=== PATIENT | female | born 2000 | race Caucasian/White ===

== ENCOUNTER 2018-11-20 10:26 | Emergency (ER) | payer OTHER ==
[2018-11-20 10:48] LABS: Hematocrit 40.6 % (30.3-42.9); Hemoglobin 13.5 gm/dl (10.1-14.3); Mean Corpuscular HGB Conc 33 % (30-34); Mean Corpuscular Volume 86 fl (79-97); Platelet Count 207 K/mm3 (140-440); Red Blood Count 4.71 M/mm3 (3.65-5.03); Red Cell Distribution Width 14.7 % (13.2-15.2)
[2018-11-20 11:11] LABS: Alanine Aminotransferase 6 units/L (7-56); Albumin 4.9 g/dL (3.9-5); BUN/Creatinine Ratio 24; Blood Urea Nitrogen 12 mg/dL (7-17); Calcium 9.3 mg/dL (8.4-10.2); Hemolysis Index 4
[2018-11-20] MEDS ORDERED: MORPHINE IV ONE (11:36)
[2018-11-20] MEDS ORDERED: NACL 0.9% 1000 ML 1,000 ML IV ONE (11:36)
[2018-11-20] MEDS ORDERED: ZOFRAN IV ONE (11:36)
--- NOTE | 2018-11-20 11:48 | Emergency Department Report ---
ED Abdominal Pain HPI - General Chief Complaint: Nausea/Vomiting/Diarrhea Stated Complaint: VOMITING Time Seen by Provider: 11/20/18 11:31 Source: patient Mode of arrival: Ambulatory Limitations: No Limitations - History of Present Illness Initial Comments: This is a 18-year-old female nontoxic, well nourished in appearance, no acute signs of distress presents to the ED with c/o of nausea and vomiting and abdominal pain 1 day. Patient describes vomiting as food content and yellow gastric acid. Patient describes abdominal pain as cramping and aching with level of 3/10 diffuse. Patient denies chest pain, short of breath, fever, chills, headache, stiff neck, numbness or tingling. Patient denies any diarrhea or constipation. Patient denies any recent travels. Patient denies any allergies or PMH. MD Complaint: abdominal pain -: days(s) (1) Location: diffuse Radiation: none Migration to: no migration Severity: mild Severity scale (0 -10): 8 Quality: cramping, aching Consistency: constant Improves With: nothing Worsens With: nothing Associated Symptoms: nausea, vomiting. denies: diarrhea, fever, chills, constipation, dysuria, hematemesis, hematochezia, melena, hematuria, anorexia, syncope - Related Data Previous Rx's Medication Instructions Recorded Last Taken Type Ibuprofen [Motrin] 600 mg PO Q8H PRN #20 tablet 11/20/18 Unknown Rx Ondansetron [Zofran Odt] 4 mg PO Q8HR PRN #20 tab.rapdis 11/20/18 Unknown Rx Allergies Allergy/AdvReac Type Severity Reaction Status Date / Time No Known Allergies Allergy Unverified 11/20/18 10:31 ED Review of Systems ROS: Stated complaint: VOMITING Other details as noted in HPI Constitutional: denies: chills, fever Eyes: denies: eye pain, eye discharge, vision change ENT: denies: ear pain, throat pain Respiratory: denies: cough, shortness of breath, wheezing Cardiovascular: denies: chest pain, palpitations Endocrine: no symptoms reported Gastrointestinal: abdominal pain, nausea, vomiting. denies: diarrhea Genitourinary: denies: urgency, dysuria, discharge Musculoskeletal: denies: back pain, joint swelling, arthralgia Skin: denies: rash, lesions Neurological: denies: headache, weakness, paresthesias Psychiatric: denies: anxiety, depression Hematological/Lymphatic: denies: easy bleeding, easy bruising ED Past Medical Hx - Social History Smoking Status: Never Smoker Substance Use Type: None - Medications Home Medications: Home Medications Medication Instructions Recorded Confirmed Last Taken Type Ibuprofen [Motrin] 600 mg PO Q8H PRN #20 tablet 11/20/18 Unknown Rx Ondansetron [Zofran Odt] 4 mg PO Q8HR PRN #20 tab.rapdis 11/20/18 Unknown Rx ED Physical Exam - General Limitations: No Limitations General appearance: alert, in no apparent distress - Head Head exam: Present: atraumatic, normocephalic - Eye Eye exam: Present: normal appearance - Neck Neck exam: Present: normal inspection, full ROM. Absent: tenderness, meningismus, lymphadenopathy - Respiratory Respiratory exam: Present: normal lung sounds bilaterally. Absent: respiratory distress, wheezes, rales, rhonchi, stridor, chest wall tenderness, accessory muscle use, decreased breath sounds, prolonged expiratory - Cardiovascular Cardiovascular Exam: Present: regular rate, normal rhythm, tachycardia, normal heart sounds. Absent: irregular rhythm, systolic murmur, diastolic murmur, rubs, gallop - GI/Abdominal GI/Abdominal exam: Present: soft, tenderness (diffuse), normal bowel sounds. Absent: distended, guarding, rebound, rigid, diminished bowel sounds - Expanded GI/Abdominal Exam Expanded GI/Abdominal exam: Absent: psoas sign, Fitzpatrick's sign, Rovsing's sign, tenderness at Mcburney's Point, ascites - Extremities Exam Extremities exam: Present: normal inspection, full ROM, normal capillary refill - Back Exam Back exam: Present: normal inspection, full ROM. Absent: tenderness, CVA tenderness (R), CVA tenderness (L), muscle spasm, paraspinal tenderness, vertebral tenderness, rash noted - Neurological Exam Neurological exam: Present: alert, oriented X3, normal gait - Psychiatric Psychiatric exam: Present: normal affect, normal mood - Skin Skin exam: Present: warm, dry, intact, normal color. Absent: rash ED Course Vital Signs 11/20/18 11/20/18 11/20/18 10:28 12:03 12:33 Temperature 98.6 F Pulse Rate 108 H Respiratory 18 18 15 Rate Blood Pressure 107/62 O2 Sat by Pulse 98 Oximetry - Reevaluation(s) Reevaluation #1: 11/20/18 11:47 Patient is speaking in full sentences with no signs of distress noted. ED Medical Decision Making - Lab Data Result diagrams: 11/20/18 10:37 11/20/18 10:37 - Medical Decision Making This is a 18-year-old female that presents with abdominal pain. Patient is stable and was examined by me. There is slight abdominal tenderness. Negative signs of symptoms of appendicitis. Labs obtained. UA obtained. CT with contrast of abdomen obtained and dictated by the radiologist. Patient is notified of the report with no questions noted by the patient. Vital signs are stable prior to discharge. PAtient received medical treatment in the ED which patient stated symptoms has resolved and subsided. A by mouth challenge has been obtained and patient tolerated well with no nausea vomiting. Patient was notified of strict precautions of appendicitis symptoms and to return to the ED if symptoms occurs as soon as possible. Patient was also instructed to Follow-up with a primary care doctor in 3-5 days or if symptoms worsen and continue return to emergency room as soon as possible. At time of discharge, the patient does not seem toxic or ill in appearance. No acute signs of distress noted. Patient agrees to discharge treatment plan of care. No further questions noted by the patient. Critical care attestation.: If time is entered above; I have spent that time in minutes in the direct care of this critically ill patient, excluding procedure time. ED Disposition Clinical Impression: Abdominal pain Qualifiers: Abdominal location: generalized Qualified Code(s): R10.84 - Generalized abdominal pain Nausea & vomiting Qualifiers: Vomiting type: unspecified Vomiting Intractability: non-intractable Qualified Code(s): R11.2 - Nausea with vomiting, unspecified Disposition: DC-01 TO HOME OR SELFCARE Is pt being admited?: No Does the pt Need Aspirin: No Condition: Stable Instructions: Acute Abdominal Pain (ED), Acute Nausea and Vomiting (ED) Additional Instructions: Follow-up with a primary care doctor in 3-5 days or if symptoms worsen and continue return to emergency room as soon as possible. Prescriptions: Ibuprofen [Motrin] 600 mg PO Q8H PRN #20 tablet PRN Reason: Pain Ondansetron [Zofran Odt] 4 mg PO Q8HR PRN #20 tab.rapdis PRN Reason: Nausea Referrals: PRIMARY CAREMD [Referring] - 3-5 Days SONAL SOLOMON MD [Staff Physician] - 3-5 Days [facility] [place] [Outside] - 3-5 Days [facility] [Outside] - 3-5 Days Forms: Work/School Release Form(ED)
--- NOTE | 2018-11-20 15:36 | Cat Scan Report ---
FINAL REPORT EXAM: CT ABD AND PELVIS W CONTRAST HISTORY: ABD PAIN TECHNIQUE: CT of the abdomen and pelvis was performed after the administration of intravenous contra st. Subsequently, CT of the abdomen and pelvis was performed in the delayed phase. 100 cc of Omnipaqu e 300 intravenous contrast were given. Reconstructions were included in the coronal and sagittal planes. PRIORS: None. FINDINGS: Lower thorax: The lung bases are clear. The visualized portions of the heart are normal. Liver: The liver is normal in attenuation. No intrahepatic biliary duct dilation. No focal hepatic le sions. Gallbladder/ biliary system: No cholelithiasis. The common bile duct appears nondilated. Spleen: No splenic lesions are seen. Pancreas: No pancreatic lesions are seen. No pancreatic duct dilation. Kidneys: There is a nonspecific low-attenuation lesion in the interpolar region of the left kidney wh ich is higher in attenuation than a simple cyst measuring 2.2 x 1.7 centimeters. No hydronephrosis on either side. Adrenal glands: No adrenal masses. Vasculature: The abdominal and pelvic vasculature is patent without variant anatomy. Lymph nodes: No enlarged lymph nodes are seen in the abdomen or pelvis. Bowel, mesentery, peritoneum: No bowel obstruction. No free fluid or free air. The appendix is normal . No colonic diverticulosis. No bowel wall thickening. Urinary bladder: No filling defects are seen. Pelvis: Normal anatomy is noted. No masses. Abdominal wall: No abdominal wall hernia or other subcutaneous findings. Bones: No acute or chronic osseous finding. IMPRESSION: 1. No acute intra-abdominal or intrapelvic process. 2. Nonspecific left renal lesion is slightly higher in attenuation than a simple cyst. Recommend furt her evaluation with renal ultrasound.
[2018-11-20 15:41] LABS: Bacteria,Urine 1+ /HPF (Negative); Bilirubin,Urine NEG (Negative); Blood,Urine NEG (Negative); Color,Urine Straw (Yellow); Protein,Urine <15 mg/dL mg/dL (Negative); Urobilinogen,Urine < 2.0 mg/dL (<2.0)
[2018-11-20 16:29] VITALS: BP 104/64
== END 2018-11-20 16:28 | disposition home or self-care (01) ==
LOC: ED 10:26
DX: R10.84 Generalized abdominal pain (principal); R11.2 Nausea with vomiting, unspecified
CPT/HCPCS: 36415; 74177; 80053; 81001; 83690; 84703; 85027; 96361; 96374; 96375; 99284; J2270; J2405; J7030; Q9967; 96365

== ENCOUNTER 2021-01-27 11:20 | Emergency (ER) | payer SELFPAY ==
--- NOTE | 2021-01-27 13:18 | Event Note ---
ED Screening Note ED Screening Note: Patient presents for heavy vaginal bleeding for the last couple days. She states that she has only had to change her pad twice a day She states that she has lower abdominal cramping She states that she did not have a cycle last month She states lately her cycles have been irregular She states her last cycle was in November She is not seeing a [employer] She is not on any control No past medical history no allergies to medications This initial assessment/diagnostic orders/clinical plan/treatment(s) is/are subject to change based on patients health status, clinical progression and re- assessment by fellow clinical providers in the ED. Further treatment and workup at subsequent clinical providers discretion. Patient/guardian urged not to elope from the ED as their condition may be serious if not clinically assessed and managed. Initial orders include: labs, ua
[2021-01-27 13:50] LABS: Bacteria,Urine 3+ /HPF (Negative); Bilirubin,Urine NEG (Negative); Blood,Urine LG (Negative); Color,Urine Yellow (Yellow); Mucus,Urine 2+ /HPF; Urobilinogen,Urine < 2.0 mg/dL (<2.0)
[2021-01-27 13:51] LABS: RBC,Urine > 182.0 /HPF (0.0-6.0)
[2021-01-27 14:56] LABS: Basophils % (Auto) 0.4 % (0.0-1.8); Eosinophils # (Auto) 0.1 K/mm3 (0.0-0.4); Eosinophils % (Auto) 0.8 % (0.0-4.3); Hemoglobin 12.5 gm/dl (10.1-14.3); Lymphocytes # (Auto) 2.4 K/mm3 (1.2-5.4); Lymphocytes % (Auto) 22.6 % (13.4-35.0); Mean Corpuscular HGB Conc 34 % (30-34); Mean Corpuscular Volume 87 fl (79-97); Monocytes # (Auto) 0.6 K/mm3 (0.0-0.8); Monocytes % (Auto) 5.9 % (0.0-7.3); Platelet Count 261 K/mm3 (140-440); Red Blood Count 4.23 M/mm3 (3.65-5.03); Red Cell Distribution Width 15.5 % (13.2-15.2)
[2021-01-27 17:12] VITALS: BP 116/82
--- NOTE | 2021-01-27 17:14 | Emergency Department Report ---
ED Female HPI - General Chief complaint: Urogenital-Female Stated complaint: ABD PAIN DUE TO CYCLE Time Seen by Provider: 01/27/21 13:14 Source: patient Mode of arrival: Ambulatory Limitations: No Limitations - History of Present Illness Initial comments: Patient is a nulliparous 20-year-old female with no past medical history presents to the ED with complaint of acute onset persistent suprapubic pain and pressure, nausea, urinary frequency and urgency, dysuria, vaginal bleeding and dysmenorrhea for the last 12 hours. Patient states that she initially started a menstrual cycle about 12 hours ago but noticed that the pain was excruciatingly worse than usual and that she started feeling nauseous with dysuria and urinary frequency and urgency. Patient states that she decided come to the ED for evaluation when the symptoms got worse despite taking [id number] pain medications. Patient denies fever, chills, vomiting, diarrhea, dizziness, syncope, chest pain, shortness of breath, vaginal discharge, low back pain, cough or sore throat. MD Complaint: vaginal bleeding, dysuria, pelvic pain, other (Urinary frequency and urgency; nausea) -: Sudden, hour(s) (12) Location: suprapubic, other (Vaginal) Radiation: non-radiating Severity: severe Severity scale (0 -10): 7 Quality: cramping, sharp Consistency: constant Improves with: none Worsens with: none Are you Now?: No Last Menstrual Period: 01/27/21 EDC: 11/03/21 Associated Symptoms: denies other symptoms, vaginal bleeding, abdominal pain (Suprapubic pain), nausea/vomiting (Nausea), dysuria, hematuria, other (Urinary frequency and urgency). denies: vaginal discharge, fever/chills, headaches, loss of appetite, rash, seizure, shortness of breath, syncope, weakness - Related Data Sexually active: Yes : 0 Para: 0 A: 0 Previous Rx's Medication Instructions Recorded Last Taken Type Ibuprofen [Motrin 600 MG tab] 600 mg PO Q8H PRN #24 tablet 01/27/21 Unknown Rx Ondansetron [Zofran ODT TAB] 4 mg PO Q8HR PRN #20 tab.rapdis 01/27/21 Unknown Rx Sulfamethoxazole/Trimethoprim 1 each PO Q12H #20 tablet 01/27/21 Unknown Rx [Bactrim DS TAB] Allergies Allergy/AdvReac Type Severity Reaction Status Date / Time No Known Allergies Allergy Unverified 11/20/18 10:31 ED Review of Systems ROS: Stated complaint: ABD PAIN DUE TO CYCLE Other details as noted in HPI Constitutional: denies: chills, fever Eyes: denies: eye pain, eye discharge, vision change ENT: denies: ear pain, throat pain Respiratory: denies: cough, shortness of breath, wheezing Cardiovascular: denies: chest pain, palpitations Endocrine: no symptoms reported Gastrointestinal: abdominal pain (Suprapubic pain), nausea. denies: diarrhea Genitourinary: urgency, dysuria, frequency, hematuria, abnormal menses (Vaginal bleeding). denies: discharge Musculoskeletal: denies: back pain, joint swelling, arthralgia Skin: denies: rash, lesions Neurological: denies: headache, weakness, paresthesias Psychiatric: denies: anxiety, depression Hematological/Lymphatic: denies: easy bleeding, easy bruising ED Past Medical Hx - Past Medical History Previous Medical History?: No - Surgical History Past Surgical History?: No - Social History Smoking Status: Never Smoker Substance Use Type: None - Medications Home Medications: Home Medications Medication Instructions Recorded Confirmed Last Taken Type Ibuprofen [Motrin 600 MG tab] 600 mg PO Q8H PRN #24 tablet 01/27/21 Unknown Rx Ondansetron [Zofran ODT TAB] 4 mg PO Q8HR PRN #20 tab.rapdis 01/27/21 Unknown Rx Sulfamethoxazole/Trimethoprim 1 each PO Q12H #20 tablet 01/27/21 Unknown Rx [Bactrim DS TAB] ED Physical Exam - General Limitations: No Limitations General appearance: alert, in no apparent distress - Head Head exam: Present: atraumatic, normocephalic, normal inspection - Eye Eye exam: Present: normal appearance, PERRL, EOMI Pupils: Present: normal accommodation - ENT ENT exam: Present: normal exam, normal orophraynx, mucous membranes moist, TM's normal bilaterally, normal external ear exam - Neck Neck exam: Present: normal inspection, full ROM - Respiratory Respiratory exam: Present: normal lung sounds bilaterally. Absent: respiratory distress, wheezes, rales, stridor, chest wall tenderness, accessory muscle use, prolonged expiratory - Cardiovascular Cardiovascular Exam: Present: regular rate, normal rhythm, normal heart sounds. Absent: systolic murmur, diastolic murmur, rubs, gallop - GI/Abdominal GI/Abdominal exam: Present: soft, tenderness (Palpable moderate suprapubic tenderness), normal bowel sounds. Absent: guarding, rebound, hyperactive bowel sounds, hypoactive bowel sounds, organomegaly - Bi-manual exam: Present: other (Pelvic exam deferred at this time) - Extremities Exam Extremities exam: Present: normal inspection, full ROM, normal capillary refill - Back Exam Back exam: Present: normal inspection, full ROM. Absent: tenderness, CVA tenderness (R), CVA tenderness (L), muscle spasm, paraspinal tenderness, vertebral tenderness - Neurological Exam Neurological exam: Present: alert, oriented X3, CN II-XII intact, normal gait, reflexes normal - Psychiatric Psychiatric exam: Present: normal affect, normal mood - Skin Skin exam: Present: warm, dry, intact, normal color. Absent: rash ED Course Vital Signs 01/27/21 12:29 Temperature 98.4 F Pulse Rate 63 Respiratory 17 Rate Blood Pressure 131/82 [Right] O2 Sat by Pulse 100 Oximetry ED Medical Decision Making - Lab Data Result diagrams: 01/27/21 14:28 - Medical Decision Making This is a nulliparous 20-year-old female with no past medical history presents to the ED with complaint of acute onset persistent suprapubic pain and pressure, nausea, urinary frequency and urgency, dysuria, vaginal bleeding and dysmenorrhea for the last 12 hours. Patient states that she initially started a menstrual cycle about 12 hours ago but noticed that the pain was excruciatingly worse than usual and that she started feeling nauseous with dysuria and urinary frequency and urgency. Patient states that she decided come to the ED for evaluation when the symptoms got worse despite taking hkcn-ilz-[id number] pain medications. In the ED, patient is alert and oriented x3 and is not in any distress with normal vital signs. Lab test results were reviewed and are all nonactionable except for urinalysis that showed significant urinary tract infection with blood consistently patient's ongoing current menstrual cycle. Patient symptoms are likely due to dysmenorrhea and urinary tract infection. Patient discharged home on pain medications, antiemetics and oral antibiotics and was advised to follow-up with her primary care physician in 5 to 7 days for reevaluation. Patient is advised return to the ED immediately if symptoms get worse. Patient verbalized understanding of the symptoms, lab test results and findings and agreed with the plan of care. - Differential Diagnosis ; UTI; kidney stone; ovarian cyst; dysmenorrhea Critical care attestation.: If time is entered above; I have spent that time in minutes in the direct care of this critically ill patient, excluding procedure time. ED Disposition Clinical Impression: Primary dysmenorrhea, Acute urinary tract infection Disposition: TO HOME OR SELFCARE Is pt being admited?: No Does the pt Need Aspirin: No Condition: Stable Instructions: Antibiotic Medicine, Adult, [id number], Urinary Tract Infection, Adult, [id number], Dysmenorrhea, [id number] Additional Instructions: Se revisaron todos los resultados de las pruebas de laboratorio y no son factibles, excepto la infeccin aguda del tracto urinario en anlisis de orina. La infeccin del tracto urinario puede ser el motivo de santana dismenorrea inusualmente grave. Por lo tanto, tome los medicamentos con alimentos, luis much os lquidos y freddy un seguimiento con santana mdico de atencin primaria u obstetra / gineclogo en 5 a 7 patel para bryan reevaluacin. Regrese al servicio de urgencias de inmediato si los sntomas empeoran. Prescriptions: Sulfamethoxazole/Trimethoprim [Bactrim DS TAB] 1 each PO Q12H #20 tablet Ibuprofen [Motrin 600 MG tab] 600 mg PO Q8H PRN #24 tablet PRN Reason: Pain Ondansetron [Zofran ODT TAB] 4 mg PO Q8HR PRN #20 tab.rapdis PRN Reason: Nausea Referrals: [facility] [Provider Group] - 3-5 Days Time of Disposition: 17:16 Print Language: ANGOLAN
== END 2021-01-27 17:58 | disposition home or self-care (01) ==
LOC: ED 11:20
DX: N94.6 Dysmenorrhea, unspecified (principal); N39.0 Urinary tract infection, site not specified; Z79.899 Other long term (current) drug therapy
CPT/HCPCS: 36415; 81001; 84702; 85025; 87076; 87086; 87186; 99283